=== PATIENT | female | born 1995 | race Caucasian/White ===

== ENCOUNTER 2021-12-03 11:19 | Emergency (ER) | payer MEDICAID, SELFPAY ==
[2021-12-03 11:38] VITALS: BP 128/78; PULSE 76; PULSE 88; RESP 18; TEMP 36.4; O2SAT 99; BMI 49.8
--- NOTE | 2021-12-03 11:59 | ED_ITS ---
HPI - Allergic Reaction General Chief complaint: Allergic Reaction Stated complaint: ALLERGIC RXN,UNKNOWN ORIGIN,NILAY HAND SWELLING,-SOB Time Seen by Provider: 12/03/21 11:48 Source: patient and EMS Mode of arrival: EMS Limitations: no limitations History of Present Illness HPI narrative: 26 yo female with history of asthma here with complaints of scratchy throat, indigestion, 2 episodes of diarrhea and rash to left hand. Patient tells me last night she at [facility] for dinner, felt fine and went to sleep. She woke up at 4am this morning with indigestion and took two tums. 20 minutes later she noted itching rash to left hand, had two episodes of diarrhea. Took 50mg benadryl at 8am. She went to work this morning and noticed her voice felt hoarse and throat was scratchy which prompted her to call EMS Related Data Previous Rx's Medication Instructions Recorded diphenhydramine HCl 25 mg capsule 50 mg PO QID PRN #20 cap 12/03/21 (Benadryl) prednisone 20 mg tablet 40 mg PO DAILY #10 tab 12/03/21 Allergies Allergy/AdvReac Type Severity Reaction Status Date / Time pork derived (porcine) Allergy Unknown DIFF Unverified 06/10/20 17:12 [PORK DERIVED (PORCINE)] BREATHING Review of Systems Review of Systems: Yes all other systems are reviewed and are negative Constitutional: Constitutional: Reports no additional constitutional complaints, Denies body ache(s), Denies chills, Denies fever(s), Denies headache(s) and Denies weakness Eyes: Eyes: Reports no additional eye complaints and Denies change in vision ENT: Reports system reviewed and no additional complaints, except as documented, Denies dizziness, Denies headache(s), Denies nasal congestion, Denies nasal discharge and Denies neck pain Comments: +hoarse voice/scratchy throat Cardiovascular: Cardiovascular: Reports no additional cardiovascular complaints, Denies chest pain, Denies leg edema and Denies dyspnea Respiratory: Respiratory: Reports no additional respiratory complaints, Denies cough and Denies dyspnea Gastrointestinal: Gastrointestinal: Reports no additional gastrointestinal complaints, Denies abdominal pain, Reports heartburn, Reports diarrhea (x2), Denies nausea and Denies vomiting Genitourinary: Genitourinary: Reports no additional female genitourinary complaints and Denies urinary incontinence Musculoskeletal: Musculoskeletal: Reports no additional musculoskeletal complaints, Denies back pain, Denies arthralgias, Denies joint swelling, Denies neck pain, Denies numbness and Denies tingling Integumentary/Breasts: Skin/Breast: Reports system reviewed and no additional complaints, except as docu and Reports rash Neurologic: Reports system reviewed and no additional complaints, except as do cumented, Denies dizziness, Denies headache(s), Denies numbness, Denies tingling and Denies weakness [facility] Past Medical History Attestation statement: The following information was validated with the patient. Source: old records reviewed and nursing notes reviewed Social History Social History Alcohol intake: current Alcohol intake frequency: holidays/special occasions only Patient Tobacco Use Status: Current everyday Tobacco user Use of substances other than those prescribed or required for medical reasons: No Advance Directives: No Advance Directives Information Provided: No Physical Exam ED Vital Signs: Vital Signs - 24 hr 12/03/21 11:38 12/03/21 12:00 Temperature 97.6 F Pulse Rate 76 75 Respiratory Rate 18 18 Blood Pressure 128/78 Pulse Oximetry 99 95 BMI result Body Mass Index 49.8 Const General: cooperative, healthy appearing, comfortable and no acute distress Orientation/consciousness: patient oriented x3 Limitations: no limitations HENMT Other: No angioedema Airway open and patent No stridor Head: Yes normal to inspection Ears: hearing grossly normal bilaterally and TM's normal bilaterally General nose exam: Normal external nose present Face and sinus: Yes normal facial exam Mouth: Normal oral and palatal mucosa present Teeth and gingiva: dentition normal Throat: Yes posterior oropharynx normal, Yes tonsils normal and Yes uvula midline Eyes General: appearance normal, both eyes and all related structures Pupils: Equal, round and reactive pupils present Neck Neck: Yes normal visual inspection, Yes full ROM, Yes no lymphadenopathy and Yes no meningeal signs Chest Chest palpation & inspection: normal inspection of the chest Resp Effort & Inspection: normal respiratory effort Auscultation: clear to auscultation bilaterally Cardio Rate: regular rate Rhythm: regular rhythm Peripheral pulses: Peripheral pulses 2+ throughout GI Inspection: Yes normal to inspection Palpation (GI): Soft to palpation and nontender Back/Spine/Pelvis Thoracic/Lumbar Spine: thoracic and lumbar spine normal to inspection Skin Other: the left hand to the inter phalangeal spaces there is an urticarial rash noted. Single urticarial lesion noted to the right hand to the 1st and 2nd webspace Neuro General: patient oriented x3, moves all extremities and no meningeal signs Cranial nerves: Yes Equal, round and reactive pupils present Gait exam (Neuro): Normal gait present Extrem General: Yes normal to inspection Course Course Course Narrative: 26 yo female here with complaints of itching rash, diarrhea, hoarse voice/scratchy throat since early this morning which she noticed after waking with indigestion and taking some tums. ?allergic reaction. No airway involvement/angioedema with clear lung sounds. VSS. Will give PO prednisone, H2 teresa, benadryl and re-assess. 1330- patient monitored in the emergency department for 2hrs. no progressive symptoms. I spoke to the patient and she is feeling improved. Plan for discharge home with course of prednisone and p.r.n. Benadryl. Reviewed worrisome signs and symptoms of when to return to the emergency department. Comfortable discharge home. MDM - Allergic Reaction Differential Diagnosis Differential diagnosis: Likely allergic reaction Medical Records Attestation: I reviewed the patient's medical records. Lab Data Attestation: I reviewed the patient's lab results. Discharge Plan Discharge Clinical Impression: Allergic reaction Patient Disposition: Still a Patient Instructions: General Allergic Reaction (ED) Additional Instructions: Your next dose of prednisone is tomorrow Continue Benadryl as needed Follow up with her primary care doctor in 1 week for persistent symptoms Return to the emergency department for difficulty swallowing, difficulty breathing, Prescriptions: New prednisone 20 mg tablet 40 mg PO DAILY Qty: 10 0RF diphenhydramine HCl [Benadryl] 25 mg capsule 50 mg PO QID PRN (Reason: itching) Qty: 20 0RF Referrals: Rhona Cotter MD [Primary Care Provider] - 1 week
[2021-12-03 12:00] VITALS: PULSE 75; RESP 18; O2SAT 95
[2021-12-03] MEDS: diphenhydrAMINE HCL 25 MG TABLET 50 MG PO (12:03)
[2021-12-03] MEDS: predniSONE 20 MG TABLET 60 MG PO (12:03)
[2021-12-03] MEDS: Famotidine 20 MG TABLET 40 MG PO (12:03)
--- NOTE | 2021-12-03 12:08 | PC.NURSE ---
patient a&ox3, vss, pt medicated per order, lungs clear, pt speaking in full sentences, no difficulty swallowing noted, call [place] within reach, will continue to monitor
== END 2021-12-03 14:00 | disposition still patient (30) ==
PROVIDERS: Emergency Provider Emergency Medicine; PCP Internal Medicine
DX: T78.40XA Allergy, unspecified, initial encounter (principal); R21 Rash and other nonspecific skin eruption; X58.XXXA Exposure to other specified factors, initial encounter; F17.200 Nicotine dependence, unspecified, uncomplicated
CPT/HCPCS: 99283; 99284; Q0163

== ENCOUNTER → 2022-05-26 10:24 | Outpatient (BNVA) | payer OTHER, SELFPAY | PROVIDERS: PCP Internal Medicine; Visit Provider Physician Assistant Surgical | DX: E66.01 Morbid (severe) obesity due to excess calories (principal); Z68.42 Body mass index [BMI] 45.0-49.9, adult | CPT/HCPCS: 99202 ==

== ENCOUNTER 2023-02-02 08:50 | Outpatient (REF) | payer OTHER, SELFPAY ==
[2023-02-02 12:22] LABS: Influenza A PCR NEGATIVE (Negative); Influenza B PCR NEGATIVE (Negative); Resp Syncy Virus RNA Qual PCR NEGATIVE (Negative); SARS COV2 PCR INHOUSE NEGATIVE (Negative)
== END 2023-02-02 08:51 | disposition home or self-care (01) ==
LOC: HO.LAB 08:50
PROVIDERS: Visit Provider Nurse Practitioner Acute Care
DX: R68.89 Other general symptoms and signs (principal); Z20.822 Contact with and (suspected) exposure to COVID-19
CPT/HCPCS: 0241U

== ENCOUNTER 2024-01-14 08:04 | Outpatient (AMB) | payer OTHER, SELFPAY ==
[2024-01-14 08:13] VITALS: BP 136/70; PULSE 78; O2SAT 98; BMI 50.0
--- NOTE | 2024-01-14 08:13 | MHC.PC.OV ---
Vital Signs 01/14/24 08:13 Height 5 ft Weight 256 lb BMI 50.0 BP 136/70 Blood Pressure Location Lt brachial Position Sitting Pulse 78 Pulse Source Pulse Oximeter Pulse Oximetry (%) 98 Oxygen Delivery Method Room Air Intake Visit Reasons: Annual [employer] Required: No Lyft Driver: Present (Anabel Snow MA) Accompanied by: Significant Other Allergies pork derived (porcine) [PORK DERIVED (PORCINE)] Allergy (Unknown, Verified 01/14/24 08:47) DIFF BREATHING fluoxetine [From Prozac] Adverse Reaction (Severe, Verified 01/14/24 08:47) suicidal thoughts Medication List - Last Reconciled 01/14/24 by Nayla Gonzalez MD albuterol sulfate 90 mcg/actuation (ProAir HFA) 2 puffs PO Q6H PRN albuterol sulfate 2.5 mg (3 mL) inhalation Q4-6H PRN 30 days Tobacco use date assessed: 01/14/24 Dental Screening Dental Screen Date: 01/14/24 Did you have a dental visit in the last 12 months?: Yes Did you have a dental problem in the last 6 months where you did not have access to dental care?: No Was dental information given to patient?: Patient has dentist HPI HPI Comments History of Present Illness Details This is a 28-year-old female with morbid obesity that comes accompanied by fiance for her physical exam. She is morbidly obese with a BMI of 50 and was [place] [facility] [place] but stopped going because got afraid of surgery. She would like to restart weight management again. Has an appointment scheduled for Pap smear 01/23/2024. Has a strong family history of cancer including mother, aunt and uncle. No shortness of breath. Occasional mid chest pain that happens at rest. Complains of bilateral ear discomfort and as per patient has had 8 recurrent ear infections within a year. [facility] Medical History (Updated 01/14/24 @ 09:40 by Nayla Gonzalez MD) Acute sinus infection Exacerbation of asthma Conjunctivitis, right eye Flu-like symptoms Morbid obesity with BMI of 45.0-49.9, adult Surgical History History of Family History (Updated 01/14/24 @ 08:50 by Nayla Gonzalez MD) Mother Breast cancer, Onset Age: 43 Non-Hodgkin lymphoma in child Father Congestive heart failure Depression Maternal Aunt Breast cancer Daughter No problems noted. Son No problems noted. Brother ADHD Bipolar 1 disorder Sister Depression ADHD Social History Housing: Apartment Alcohol intake: former Patient Tobacco Use Status: Former Tobacco user (9 days since she last smoked.) Tobacco use type: Cigarette Cigarette Packs Per Day: 1 e-Cigarette/Vaping Use: Never Used Second Hand Smoke Exposure: No service: No Current occupational status: employed Current occupational exposures/hazards: No Cognitive needs: No Hearing needs: No Vision needs: Yes Questionnaire PHQ-9 Over the last 2 weeks, how often have you been bothered by any of the following problems? 1. Little interest or pleasure in doing things: several days 2. Feeling down, depressed, or hopeless: several days 3. Trouble falling or staying asleep, or sleeping too much: several days 4. Feeling tired or having little energy: not at all 5. Poor appetite or overeating: not at all 6. Feeling bad about yourself - or that you are a failure or have let yourself or your family down: not at all 7. Trouble concentrating on things, such as reading the newspaper or watching television: not at all 8. Moving or speaking so slowly that other people could have noticed. Or the opposite - being so fidgety or restless that you have been moving around a lot more than usual: not at all 9. Thoughts that you would be better off or of hurting yourself in some way: not at all Total score: 3 Depression Screening Interpretation: Negative Depression Screening Done: Yes 67988 - PHQ-9 Billing: Yes Source: Developed by Drs. Eduardo Rajput, Rachelle Vidales, Roshan Culp and colleagues, with an educational celeste from [employer]. Thrive Questionnaire Date Thrive assessed: 01/14/24 I am a: Patient What is your living situation today?: I have a steady place to live Within the past 12 months, did the food you bought not last and you didn't have the money to get more?: Never true Within the past 12 months, did you worry whether your food would run out before you got money to buy more?: Never true Do you have trouble paying for medicines?: No Do you have trouble getting transportation to medical appointments?: No Do you have trouble paying your heating and electricity bill?: No Do you have trouble taking care of your child, family member or friend?: No Do you have trouble with day-to-day activities such as bathing, preparing meals, shopping, managing finances, etc.?: No Are you currently unemployed and looking for a job?: No Are you interested in more education?: No Currently or been in a relationship where the following occur: no concerns reported THRIVE Score: 0 AUDIT C Alcohol Use Questionnaire (AUDIT-C) 1. How often do you have a drink containing alcohol?: Never Total Score: 0 Score Reviewed/Action Taken: No TULIO-7 AMB Questionnaire TULIO-7 Date TULIO - 7 assessed: 01/14/24 Feeling nervous, anxious, or on edge: 2 = More than half the days Not being able to stop or control worryin = Not at all Worrying too much about different things: 0 = Not at all Trouble relaxin = Several days Being so restless that it is hard to sit still: 2 = More than half the days Becoming easily annoyed or irritable: 2 = More than half the days Feeling afraid as if something awful might happen: 0 = Not at all Total TULIO-7 score (0-4 normal; 5-9 mild; 10-14 moderate; 15-21 severe): 7 Source: Developed by Drs. Eduardo Rajput, Rachelle Vidales, Roshan Culp and colleagues, with an educational celeste from [employer]. TULIO-7 Assessment Billing TULIO-7 Assessment Tool: TULIO-7 Assessment 60135 Review of Systems Const All systems reviewed & are unremarkable except as noted in HPI and below Eyes Reports no additional complaints, Denies change in vision and Denies other visual disturbances Card Denies chest pain at rest, Denies chest pain with activity, Denies edema, Denies irregular heart rhythm, Denies claudication, Denies dyspnea, Denies dyspnea on exertion, Denies orthopnea, Denies paroxysmal nocturnal dyspnea and Denies slow heart rate Resp Denies cough, Denies dyspnea and Denies dyspnea on exertion GI Denies abdominal pain, Denies change in bowel habits, Denies excessive flatus, Denies nausea and Denies vomiting Physical exam (Primary Care) Vital Signs: Last Vital Signs Pulse 78 01/14/24 08:13 BP 136/70 01/14/24 08:13 Pulse Ox 98 01/14/24 08:13 Oxygen Delivery Method Room Air 01/14/24 08:13 BMI result Body Mass Index 50.0 Tobacco/Smoking Status: Tobacco use Status Tobacco use date assessed 01/14/24 01/14/24 08:19 Patient Tobacco Use Status Former Tobacco user (9 days 01/14/24 08:19 since she last smoked.) Tobacco use type Cigarette 01/14/24 08:19 e-Cigarette/Vaping Use Never Used 01/14/24 08:19 PHQ-9: PHQ-9 Score PHQ-9: Total score 3 01/14/24 08:49 Depression Screening Interpretation: Negative Thrive Assessment: Date of Thrive Assessment Date Thrive assessed 01/14/24 01/14/24 08:19 Currently or been in a relationship where the following occur: no concerns reported Const Orientation/consciousness: patient oriented x3 HENMT Head: Yes normal to inspection, Yes normocephalic and Yes atraumatic Ears: external ears normal Eyes General: appearance normal, both eyes and all related structures Eyelids: Yes eyelids normal Conjunctivae: conjunctivae normal Neck Neck: Yes normal visual inspection and Yes supple Chest Breast/axilla inspection: normal inspection of the breasts Breast/axilla palpation: no axillary lymphadenopathy and abnormal palpation of the breast (Left and right breast lump at 09:00 o'clock) Resp Effort & Inspection: normal respiratory effort Auscultation: clear to auscultation bilaterally Cardio Jugular venous distension: no JVD Rate: regular rate Rhythm: regular rhythm Heart sounds: S1 normal heart sound present and S2 normal heart sound present GI Inspection: Yes normal to inspection Palpation (GI): Soft to palpation and nontender Auscultation: normal bowel sounds Skin General skin exam: no rashes or lesions noted Neuro General: patient oriented x3 and no focal motor deficits Extrem General: Yes full ROM Psych Appearance: grossly normal Assessment and Plan Assessment & Plan (1) Physical exam: Code(s): Z00.00 - Encounter for general adult medical examination without abnormal findings Plan: Repeat in a year (2) Obesity, morbid, BMI 50 or higher: Code(s): E66.01 - Morbid (severe) obesity due to excess calories Plan: Referred to weight management. Orders: Orders Lipid Panel Today E78.5 - Hyperlipidemia, unspecified, Z00.00 - Encounter for general adult medical examination without abnormal findings Comprehensive [place]. Panel Fast Today Z00.00 - Encounter for general adult medical examination without abnormal findings Complete Blood Count Auto Diff Today E66.01 - Morbid (severe) obesity due to excess calories, Z68.42 - Body mass index [BMI] 45.0-49.9, adult Thyroid Stimulating Hormone Today E66.01 - Morbid (severe) obesity due to excess calories, Z68.42 - Body mass index [BMI] 45.0-49.9, adult MM diagnostic mammo BI Today N63.15 - Unspecified lump in the right breast, overlapping quadrants, N63.25 - Unspecified lump in the left breast, overlapping quadrants US breast LT complete Today N63.25 - Unspecified lump in the left breast, overlapping quadrants US breast RT complete Today N63.15 - Unspecified lump in the right breast, overlapping quadrants Referrals Genetics Referral Z80.9 - Family history of malignant neoplasm, unspecified Ear/Nose/Throat Referral H92.09 - Otalgia, unspecified ear Medical Weight Management Referral E66.01 - Morbid (severe) obesity due to excess calories Coding Level of Care Code Est Pt Prev Care 18-39y(29305) Diagnoses Physical exam Z00.00 Obesity, morbid, BMI 50 or higher E66.01 Additional Codes TULIO-7 Assessment Billing - TULIO-7 Assessment Tool: TULIO-7 Assessment 97933 ([id number]) Time Spent (min) 33
== END 2024-01-14 09:07 | disposition home or self-care (01) ==
PROVIDERS: PCP Internal Medicine; Visit Provider Internal Medicine
DX: Z00.00 Encounter for general adult medical examination without abnormal findings (principal); E66.01 Morbid (severe) obesity due to excess calories; Z68.43 Body mass index [BMI] 50.0-59.9, adult
CPT/HCPCS: 99395

== ENCOUNTER 2024-01-24 08:05 | Outpatient (REF) | payer OTHER, SELFPAY ==
--- NOTE | ~2024-01-24 | US_ITS ---
EXAMINATION: US DIAGNOSTIC ULTRASOUND BREAST, LEFT CLINICAL INFORMATION: 28 year female, palpable abnormality 9:00 axis, left breast. COMPARISON: None available. TECHNIQUE: Ultrasound of the left breast is performed with real-time nieves scale imaging and color Doppler. Imaging was performed from the 6-12 o'clock axis. FINDINGS: There is no focal suspicious finding. There is no solid mass, architectural abnormality, duct ectasia, or edema in the soft tissue planes. There is no cystic abnormality. US/US breast LT limited mamm only IMPRESSION: No findings suspicious for malignancy in the left breast. 9:00 palpable focus shows no ultrasonographic correlate. Recommend clinical management. ASSESSMENT: BI-RADS 1 - Negative RECOMMENDATION: 1. Patient should be managed based on the clinical impression. Decision to proceed with biopsy should be based on clinical grounds and degree of clinical concern. This patient's information was entered into a reminder system with a target due date for their next mammogram.
--- NOTE | ~2024-01-24 | US_ITS ---
EXAMINATION: US DIAGNOSTIC ULTRASOUND BREAST, RIGHT CLINICAL INFORMATION: 28 year female, palpable abnormality 9:00 axis, right breast. COMPARISON: None available. TECHNIQUE: Ultrasound of the right breast is performed with real-time nieves scale imaging and color Doppler. Imaging was performed from the 6-12 o'clock axis. FINDINGS: There is no focal suspicious finding. There is no solid mass, architectural abnormality, duct ectasia, or edema in the soft tissue planes. There is no cystic abnormality. US/US breast RT limited mamm only IMPRESSION: No findings suspicious for malignancy in the right breast. 9:00 palpable focus shows no ultrasonographic correlate. Recommend clinical management. ASSESSMENT: BI-RADS 1 - Negative RECOMMENDATION: 1. Patient should be managed based on the clinical impression. Decision to proceed with biopsy should be based on clinical grounds and degree of clinical concern. This patient's information was entered into a reminder system with a target due date for their next mammogram.
== END 2024-01-24 08:06 | disposition home or self-care (01) ==
LOC: HO.MAMMO 08:05
PROVIDERS: PCP Internal Medicine; Visit Provider Internal Medicine
DX: N63.15 Unspecified lump in the right breast, overlapping quadrants (principal); N63.25 Unspecified lump in the left breast, overlapping quadrants
CPT/HCPCS: 76642

== ENCOUNTER → 2024-01-24 08:30 | Outpatient (BNV) | payer OTHER, SELFPAY | PROVIDERS: PCP Internal Medicine; Visit Provider Radiology Diagnostic Radiology | DX: N63.25 Unspecified lump in the left breast, overlapping quadrants (principal) | CPT/HCPCS: 76642 ==

== ENCOUNTER 2024-07-24 12:05 | Outpatient (AMB) | payer OTHER, SELFPAY ==
--- NOTE | 2024-07-24 13:05 | MHC.OFFWIV ---
Intake Vital Signs 07/24/24 13:11 Weight 250 lb BP 110/76 Blood Pressure Location Lt brachial Position Sitting Pulse 102 H Pulse Source Pulse Oximeter Temp 97.9 F Temp Source Oral Pulse Oximetry (%) 98 Oxygen Delivery Method Room Air Intake Visit Reasons: EP pain in kidney area Intake Note: Patient here for left kidney area pain that radiates to the front which has been present for 3 days. Patient Tobacco Use Status: Former Tobacco user (9 days since she last smoked.) Allergies pork derived (porcine) [PORK DERIVED (PORCINE)] Allergy (Unknown, Verified 07/24/24 13:11) DIFF BREATHING fluoxetine [From Prozac] Adverse Reaction (Severe, Verified 07/24/24 13:11) suicidal thoughts Do you need a note to return to daycare/school/sports/work: Yes HPI HPI Comments History of Present Illness Details Patient is a 29-year-old female complaining of low back pain that radiates around the left side for the last 3 days. She also tells me she spiked a temperature of a 100 degrees 1 degrees F 3 days ago but it came down on its own within 12 hours. She denies any blood in her urine or history of kidney stones. She tells me when she gets a UTI, she can usually feel a pain on her left side. Tells me she is not and there is no chance that she could be . [facility] Medical History (Updated 07/24/24 @ 13:18 by Nga Clarke PA-C) Acute sinus infection Exacerbation of asthma Conjunctivitis, right eye Flu-like symptoms Morbid obesity with BMI of 45.0-49.9, adult Surgical History History of Family History (Updated 01/14/24 @ 08:50 by Nayla Gonzalez MD) Mother Breast cancer, Onset Age: 43 Non-Hodgkin lymphoma in child Father Congestive heart failure Depression Maternal Aunt Breast cancer Daughter No problems noted. Son No problems noted. Brother ADHD Bipolar 1 disorder Sister Depression ADHD Social History Housing: Apartment Alcohol intake: former Patient Tobacco Use Status: Former Tobacco user (9 days since she last smoked.) Tobacco use type: Cigarette Cigarette Packs Per Day: 1 e-Cigarette/Vaping Use: Never Used Second Hand Smoke Exposure: No service: No Current occupational status: employed Current occupational exposures/hazards: No Cognitive needs: No Hearing needs: No Vision needs: Yes Review of Systems Const All systems reviewed & are unremarkable except as noted in HPI and below Physical Exam Vital Signs: Last Vital Signs Temp 97.9 F 07/24/24 13:11 Pulse 102 H 07/24/24 13:11 BP 110/76 07/24/24 13:11 Pulse Ox 98 07/24/24 13:11 Oxygen Delivery Method Room Air 07/24/24 13:11 Const General: cooperative, healthy appearing, comfortable and no acute distress Orientation/consciousness: patient oriented x3 HEENT Head: Yes normal to inspection Ears: hearing grossly normal bilaterally General nose exam: Normal external nose present Face and sinus: Yes normal facial exam Neck Neck: Yes normal visual inspection, Yes trachea midline and Yes supple Resp Effort & Inspection: normal respiratory effort and able to speak in complete sentences General: Yes CVA tenderness on the left and Yes no CVA tenderness (Right side) Back/Spine/Pelvis Back: no CVA tenderness (Right side) and CVA tenderness Skin General skin exam: no rashes or lesions noted Neuro General: patient oriented x3 Psych Appearance: grossly normal Speech and movement: Normal speech and movement present Attitude: cooperative Thought process: Normal thought process present Insight: Good insight present (Psych) Judgement: Good judgement present (Psych) Assessment & Plan Assessment & Plan (1) UTI (urinary tract infection): Code(s): N39.0 - Urinary tract infection, site not specified Qualifiers: Urinary tract infection type: acute cystitis Hematuria presence: with hematuria Qualified Code(s): N30.01 - Acute cystitis with hematuria Plan: Urinalysis positive for leukocyte esterase, positive for nitrites, 2+ protein and 3+ blood, sent cefuroxime to pharmacy. Plan see above Medications: New cefuroxime axetil 500 mg PO Q12H 10 tabs 0RF Coding Level of Care Code Est Pt Level 3 (96657) Diagnoses Acute cystitis with hematuria N30.01 Urinary tract infection type: acute cystitis Hematuria presence: with hematuria
[2024-07-24 13:11] VITALS: BP 110/76; PULSE 102; TEMP 36.6; O2SAT 98
== END 2024-07-24 13:16 | disposition home or self-care (01) ==
PROVIDERS: PCP Internal Medicine; Visit Provider Physician Assistant
DX: N30.01 Acute cystitis with hematuria (principal)

== ENCOUNTER → 2024-07-24 12:05 | Outpatient (BNVA) | payer OTHER, SELFPAY | PROVIDERS: PCP Internal Medicine; Visit Provider Physician Assistant | DX: N30.01 Acute cystitis with hematuria (principal) | CPT/HCPCS: 99212 ==

== ENCOUNTER 2025-07-02 08:24 | Outpatient (REF) | payer OTHER, SELFPAY ==
[2025-07-02 14:07] LABS: Chlamydia pneumoniae PCR Not Detected (Not Detect.); Coronavirus 229E PCR Not Detected (Not Detect.); Coronavirus HKU1 PCR Not Detected (Not Detect.); Coronavirus NL63 PCR Not Detected (Not Detect.); Coronavirus OC43 PCR Not Detected (Not Detect.); RSV PCR Not Detected (Not Detect.); Rhino/Enterovirus PCR Not Detected (Not Detect.); SARS-CoV-2 PCR Not Detected (Not Detect.)
[2025-07-02 14:09] LABS: Influenza A H1 PCR Not Detected (Not Detect.); Influenza A H1-2009 PCR Not Detected (Not Detect.); Influenza A H3 PCR Not Detected (Not Detect.)
== END 2025-07-02 08:25 | disposition home or self-care (01) ==
LOC: HO.LNP 08:24
PROVIDERS: PCP Internal Medicine; Visit Provider Physician Assistant Medical
DX: J02.9 Acute pharyngitis, unspecified (principal); J06.9 Acute upper respiratory infection, unspecified; B37.0 Candidal stomatitis; J45.909 Unspecified asthma, uncomplicated; Z79.899 Other long term (current) drug therapy; Z87.891 Personal history of nicotine dependence
CPT/HCPCS: 87633; 87880; 99212

== ENCOUNTER 2025-07-02 08:24 | Outpatient (AMB) | payer OTHER, SELFPAY ==
--- NOTE | 2025-07-02 08:27 | AM.OFFWIN_ITS ---
Intake Vital Signs 07/02/25 08:29 Height 5 ft 2 in Weight 233 lb BMI 42.6 BP 110/74 Blood Pressure Location Lt brachial Position Sitting Pulse 95 Pulse Source Pulse Oximeter Temp 98.9 F Temp Source Oral Pulse Oximetry (%) 97 Intake Visit Reasons: EP Sore throat for a few days Intake Note: pt is here for sore throat for 3 days, right ear pain, runny nose and headache Patient Tobacco Use Status: Former Tobacco user (9 days since she last smoked.) Allergies pork derived (porcine) (PORK DERIVED (PORCINE)) Allergy (Unknown, Verified 07/02/25 08:29) DIFF BREATHING fluoxetine (From Prozac) Adverse Reaction (Severe, Verified 07/02/25 08:29) suicidal thoughts Do you need a note to return to daycare/school/sports/work: No HPI HPI Comments History of Present Illness Details History - The patient is a 29-year-old female pr esenting with a sore throat and ear pain. - The sore throat began approximately th ree days ago and is accompanied by a mild cough. - The patient has a history of asthma an d uses an inhaler as needed. - She has been using Robitussin and thro at spray without relief. - The patient denies any fever but repor ts a headache. - Examination revealed erythema in the t hroat and a white coating on the tongue, suggestive of oral thrush. - The patient smokes cigarettes but marley es vaping. - She has two children in her home, but no one is ill. - She denies CP, SOB, abd pain, n/v/d, o r recent travel. Physical Exam General: Cooperative, healthy appearing, comfortable and no acute distress Orientation/consciousness: Patient oriented x3 Limitations: No limitations Head: Normal to inspection Ears: Hearing grossly normal bilaterally, external ears normal and TM's normal bilaterally Nose: Normal external nose present, normal nares present, and no nasal discharge present. Face and sinus: Sinuses nontender to palpation. Mouth: Normal oral and palatal mucosa present and moist mucous membranes noted. Tongue has a white coating on it. Throat: Tonsils normal. Uvula is midline and erythematous. Posterior oropharynx with erythema and no exudates. Eyes: Appearance normal, both eyes and all related structures Neck: Normal visual inspection, full ROM. No lymphadenopathy noted. Respiratory: Clear to auscultation bilaterally. Normal respiratory effort, able to speak in complete sentences. No respiratory distress, not tachypneic, no tripod positioning and no use of accessory muscles. Cardiovascular: Regular rate and rhythm. Normal S1 and S2. No m/r/g noted. Skin: No rashes or lesions noted Patient was informed and verbally consented to the use of an ambient scribe for clinic note documentation during this visit [facility] Medical History (Updated 01/29/25 @ 13:12 by Nayla Gonzalez MD) Acute sinus infection Exacerbation of asthma Conjunctivitis, right eye Flu-like symptoms Morbid obesity with BMI of 45.0-49.9, adult Surgical History History of Family History (Updated 01/14/24 @ 08:50 by Nayla Gonzalez MD) Mother Breast cancer, Onset Age: 43 Non-Hodgkin lymphoma in child Father Congestive heart failure Depression Maternal Aunt Breast cancer Daughter No problems noted. Son No problems noted. Brother ADHD Bipolar 1 disorder Sister Depression ADHD Social History Housing: Apartment Alcohol intake: former Patient Tobacco Use Status: Former Tobacco user (9 days since she last smoked.) Tobacco use type: Cigarette Cigarette Packs Per Day: 1 e-Cigarette/Vaping Use: Never Used Second Hand Smoke Exposure: No service: No Current occupational status: employed Current occupational exposures/hazards: No Cognitive needs: No Hearing needs: No Vision needs: Yes Review of Systems Const All systems reviewed & are unremarkable except as noted in HPI and below Physical Exam Vital Signs: Last Vital Signs Temp 98.9 F 07/02/25 08:29 Pulse 95 07/02/25 08:29 BP 110/74 07/02/25 08:29 Pulse Ox 97 07/02/25 08:29 BMI result Body Mass Index 42.6 Assessment & Plan Assessment & Plan (1) Sore throat: Code(s): J02.9 - Acute pharyngitis, unspecified (2) Thrush: Code(s): B37.0 - Candidal stomatitis Plan Most likely URI vs thrush vs covid vs viral illness vs flu rapid strep was negative plan - Conduct a respiratory panel to identify any viral infections. - Prescribe a medicated mouthwash to alleviate throat discomfort. - tylenol or motrin as needed - continue with over the counter medications - Continue current inhaler use as needed for asthma management. - will call her with the results - follow up with PCP Orders: Orders Resp Pathogen Panel - [facility] [place] Today J06.9 - Acute upper respiratory infection, unspecified Medications: New nystatin administer 1/2 of dose in each side of the mouth 5 mL buccal qid 140 mL 0RF 7 days Coding Level of Care Code Est Pt Level 3 (25772) Diagnoses Sore throat J02.9 Thrush B37.0
[2025-07-02 08:29] VITALS: BP 110/74; PULSE 95; TEMP 37.2; O2SAT 97; BMI 42.6
== END 2025-07-02 09:06 | disposition home or self-care (01) ==
PROVIDERS: PCP Internal Medicine; Visit Provider Physician Assistant Medical
DX: J02.9 Acute pharyngitis, unspecified (principal); B37.0 Candidal stomatitis; Z13.9 Encounter for screening, unspecified